=== PATIENT | male | born 1960 | race Caucasian/White ===

== ENCOUNTER 2016-10-05 06:38 | Day surgery (SDC) | payer OTHER ==
[~2016-10-05] VITALS: Ht 177.8 cm; Wt 88.5 kg
[2016-10-05 07:35] LABS: HEMATOCRIT 45.5 % (42.0-54.0); HEMOGLOBIN 15.9 g/dL (13.5-17.5); MCH 33.5 pg (26.0-34.0); MCHC 34.9 g/dL (31.0-37.0); MEAN PLATELET VOLUME 10.2 fL (7.4-10.4); RBC 4.74 10x6/uL (4.20-6.10); RDW 12.2 % (11.5-14.5); WBC 7.2 10x3/uL (4.8-10.8)
[2016-10-05 08:09] LABS: CALC OSMOLALITY 282 mosm/kg (275-300); CALCIUM 8.6 mg/dL (8.5-10.1); CARBON DIOXIDE 25.1 mmol/L (21.0-32.0); CHLORIDE - SERUM 108 mmol/L (98-107); CREATININE - SERUM 0.8 mg/dL (0.6-1.3); GLUCOSE 111 mg/dL (74-106); SODIUM 142 mmol/L (136-145); UREA NITROGEN 9 mg/dL (7-18); eGFR NON AFRICAN AMERICAN > 90 mL/min (90-120)
[2016-10-05] MEDS ORDERED: NEURONTIN 300300 MG PO (08:32)
[2016-10-05] MEDS ORDERED: AMBIEN10 MG PO (08:33)
[2016-10-05] MEDS ORDERED: HYDROCODON-ACE1 EAC7 PO (08:33)
[2016-10-05] MEDS ORDERED: ATIVAN0.5 MG PO (08:33)
[2016-10-05] MEDS ORDERED: PROVENTIL HFA6.7 GM (08:34)
[2016-10-05] MEDS ORDERED: CYMBALTA30 MG PO (08:35)
[2016-10-05] MEDS ORDERED: CIALIS10 MG PO (08:35)
[2016-10-05 08:55] VITALS: BP 149/76; Ht 177.8 cm; Wt 88.5 kg
--- NOTE | 2016-10-05 11:55 | NUR ---
1125 IV DC'ED WITH CATH INTACT & 175ML LTC. PRESSURE TO SITE. PT DRESSED. GIVEN D/C INSTRUCTIONS INCLUDING: MED REC, SHEET LISTING NSAIDS & BLOOD THINNERS TO AVOID, & DISCHARGE INSTRUCTION SHEET POST ENDOSCOPIC PROCEDURES. PT VOICED UNDERSTANDING. TO PRIVATE CAR PER WHEELCHAIR BY VOLUNTEER. HOME [facility] FEMALE VISITOR. Justin QUAN R.N.
--- NOTE | 2016-10-08 09:40 | OP ---
PATIENT NAME: JODY SINGH JR MEDICAL RECORD: [id number] :56 LOCATION:D.OPS ADMISSION DATE: SURGEON: LEOBARDO SANCHEZ MD DATE OF OPERATION: 10/05/2016 PREOPERATIVE DIAGNOSIS: History of colon polyps. POSTOPERATIVE DIAGNOSIS: History of colon polyps with 3 new sessile colon polyps. PROCEDURES: 1. Total colonoscopy to cecum. 2. Hot biopsy forceps polypectomies times 3. SURGEON: Leobardo Sanchez MD DIRECTOR TRANSITION: None. BLOOD LOSS: Minimal. ANESTHESIA: IV sedation. COMPLICATIONS: None. The risks, possible complications and alternatives to procedure were explained to the patient. He elects to proceed. ENDOSCOPIC COURSE: The patient was conveyed to the endoscopy suite electively on 10/05/2016. IV sedation was induced by the anesthesia staff. The patient was placed in the Barragan position. A digital rectal examination was performed. The prostate was slightly enlarged. It was without nodules. It was symmetric. A colonoscope was inserted through the anus. It was easily advanced to the cecum. The prep was excellent. I slowly withdrew the endoscope. I used a combination of direct imaging as well as narrow band imaging to identify the polyps. The polyps were sessile polyps, all between 7 mm and 1.1 cm in dimension. They were removed in their entireties utilizing hot biopsy forceps polypectomy technique. A retroflexed view was obtained in the rectum. I then unretroflexed the scope and removed it under direct vision. I will see the patient in my office in 2-3 weeks. We will discuss the results of the biopsies at that time. I will plan for his next colonoscopy to be in 3 years. TRANSINT:[id number] Voice Confirmation ID: [id number] DOCUMENT ID: [id number] LEOBARDO SANCHEZ MD at 0940 CC: PAMELA VELASQUEZ DO [id number] DICTATION DATE: 10/05/16 1131 AUTOMOTIVE SALESPERSON: 10/05/16 1210 [facility] 10/05/[address] [address]
--- NOTE | 2016-10-08 09:40 | HP ---
PATIENT: JODY SINGH JR MEDICAL RECORD: [id number] ACCOUNT: [id number] LOCATION:[facility] : 56 ADMISSION DATE: 10/05/16 HISTORY AND PHYSICAL EXAMINATION PREOPERATIVE DIAGNOSIS: History of colon polyps. HISTORY OF PRESENT ILLNESS: The patient has diverticulitis frequently. He has diverticulitis almost yearly. He has had some hematochezia recently. His abdomen is nontender. He is not having any abdominal pain. He is here for surveillance colonoscopy. The risks, possible complications and alternatives to procedure were explained to the patient. He elects to proceed. SOCIAL HISTORY: A 56-[id number]-[id number] history. PAST MEDICAL AND SURGICAL HISTORY: COPD and hypertension. He has been a previous difficult intubation. Prior shoulder surgery. REVIEW OF SYSTEMS: Negative for CVA or seizures. Negative for diabetes or thyroid problems. Negative for renal disease or hepatitis. ALLERGIES: No known drug allergies. HOME MEDICINES: Ambien, Ativan, albuterol, Neurontin, and [place]. PHYSICAL EXAMINATION: GENERAL: The patient does not appear acutely ill. He does appear chronically ill. VITAL SIGNS: Reviewed. HEAD: External ears appear normal. EYES: Extraocular movements are intact. NECK: Trachea is midline. CHEST: No intercostal retractions. PULMONARY: Nonlabored. ABDOMEN: Nontender. IMPRESSION: 1. Hematochezia. 2. History of diverticulitis. 3. History of colon polyps. PLAN: Surveillance colonoscopy. TRANSINT:[id number] Voice Confirmation ID: [id number] DOCUMENT ID: [id number] HISTORY AND PHYSICAL [id number] LIBIAJODY GEORGE PENG SEXTON MD at 0940 CC: PAMELA VELASQUEZ DO [id number] DICTATION DATE: 10/05/16 0943 MACHINE FEEDER RAW STOCK: 10/05/16 0957 [facility] 10/05/16 [place] [address]
== END 2016-10-05 11:25 | disposition home or self-care (01) ==
LOC: D.OPS 06:38
PROVIDERS: Anesthesiology
DX: Z12.11 Encounter for screening for malignant neoplasm of colon (principal); K63.5 Polyp of colon; Z86.010 Personal history of colon polyps; N40.0 Benign prostatic hyperplasia without lower urinary tract symptoms; F17.210 Nicotine dependence, cigarettes, uncomplicated; J44.9 Chronic obstructive pulmonary disease, unspecified; I10 Essential (primary) hypertension; Z79.891 Long term (current) use of opiate analgesic; Z79.899 Other long term (current) drug therapy

== ENCOUNTER → 2016-10-25 20:17 | Outpatient (CLI) | payer OTHER ==
[2016-10-05 08:55] VITALS: BMI 28.0
[~2016-10-25 20:17] MED LIST: AMBIEN10 MG PO; ATIVAN0.5 MG PO; CIALIS10 MG PO; CYMBALTA30 MG PO; HYDROCODON-ACE1 EAC7 PO; NEURONTIN 300300 MG PO; PROVENTIL HFA6.7 GM
== END | disposition home or self-care (01) ==
LOC: D.LABREF 20:17
DX: R60.0 Localized edema (principal)

== ENCOUNTER → 2016-10-26 17:24 | Outpatient (CLI) | payer OTHER ==
[2016-10-05 08:55] VITALS: BMI 28.0
== END | disposition home or self-care (01) ==
LOC: D.LABREF 17:24
DX: R60.0 Localized edema (principal)

== ENCOUNTER → 2017-01-19 19:33 | Outpatient (CLI) | payer OTHER ==
[2016-10-05 08:55] VITALS: BMI 28.0
== END | disposition home or self-care (01) ==
LOC: D.LABREF 19:33
DX: K04.7 Periapical abscess without sinus (principal)

== ENCOUNTER 2018-05-31 09:57 | Day surgery (SDC) | payer MEDICARE ==
[~2018-05-31] VITALS: Ht 177.8 cm; Wt 87.5 kg
--- NOTE | ~2018-05-31 | OP ---
PATIENT NAME: JODY SINGH JR MEDICAL RECORD: [id number] :56 LOCATION:D.[facility] ADMISSION DATE: SURGEON: LEOBARDO SANCHEZ MD DATE OF OPERATION: 05/31/2018 PREOPERATIVE DIAGNOSIS: Symptomatic ventral hernia. POSTOPERATIVE DIAGNOSIS: Symptomatic incarcerated ventral hernia. PROCEDURE: Open repair of symptomatic incarcerated ventral hernia. SURGEON: Leobardo Sanchez MD PAPER FEEDER: None. BLOOD LOSS: Minimal. ANESTHESIA: General. COMPLICATIONS: None. The patient elected not to have mesh placed during this repair. He understands there is a higher risk of recurrence if mesh is not used. OPERATIVE COURSE: The patient was conveyed to the operating room electively on 05/31/2018. General anesthesia was induced by the anesthesia staff. An incision was accomplished within the umbilicus. Sharp dissection was carried down to level of some incarcerated preperitoneal fat, which was excised in a piecemeal fashion. I then sharply cleaned overlying connective tissue from around the hernia defect. Some attenuated fascia was sharply excised as well. A btmu-[id number]-[id number] repair was performed with multiple interrupted #0 Surgidac sutures. I then overran this repair with a running #1 Vicryl. I then tacked down the umbilical skin to the underlying repair with a 3-0 Vicryl. The skin was approximated with multiple interrupted 4-0 Vicryl Rapide sutures and then Dermabond and then Steri-Strips. The patient was then extubated and conveyed to the postanesthesia care unit, where he was in stable condition. He will be dismissed home on [place] as well as Colace. I will see him in the office in 2-3 weeks. TRANSINT:[id number] Voice Confirmation ID: [id number] DOCUMENT ID: [id number] LEOBARDO SANCHEZ MD at 1544 CC: [id number] DICTATION DATE: 05/31/181818 DIE CAST ENGINEER: 05/31/181922 [facility] 05/31/18 [id number] [place] [address]
[~2018-05-31 09:57] MED LIST changes: +NORCO 10-325 TA1 TAB PO; +VENTOLIN HFA18 GM INH
[2018-05-31 10:56] LABS: HEMATOCRIT 46.5 % (42.0-54.0); HEMOGLOBIN 16.8 g/dL (13.5-17.5); MCH 35.1 pg (26.0-34.0); MCHC 36.1 g/dL (31.0-37.0); MCV 97.1 fL (80.0-100.0); MEAN PLATELET VOLUME 9.8 fL (7.4-10.4); RBC 4.79 10x6/uL (4.20-6.10); RDW 11.9 % (11.5-14.5); WBC 12.8 10x3/uL (4.8-10.8)
[2018-05-31 11:13] VITALS: Ht 177.8 cm; Wt 87.5 kg
== END 2018-05-31 17:10 | disposition home or self-care (01) ==
LOC: D.OPS 09:57 → D.PAN 12:20 → D.OPS 12:20 → D.PAN 12:30 → D.OPS 13:30
PROVIDERS: Anesthesiology
DX: K43.9 Ventral hernia without obstruction or gangrene (principal); Z72.0 Tobacco use

== ENCOUNTER → 2019-05-25 08:13 | Outpatient (CLI) | payer MEDICARE ==
[2018-05-31 11:13] VITALS: BMI 27.7
--- NOTE | 2019-05-28 09:28 | ST ---
PATIENT:JODY SINGH JR MEDICAL RECORD: [id number] SEX: M LOCATION:[facility] ORDER #: ADMISSION DATE: 05/25/19 AGE OF PATIENT: 59 REFERRING PHYSICIAN: INTERPRETING PHYSICIAN: CHRISTIANA MARIANO MD DATE OF SERVICE: 05/25/2019 PROCEDURE: The patient was exercised on standard Salvatore protocol for 6 minutes achieving 85% max target heart rate response with 33 mCi of sestamibi injected at peak stress, 11 mCi used previously for rest images. FINDINGS: Gated SPECT reveals preserved ejection fraction 83% with decreased thickening and brightening throughout the inferior segments. SPECT IMAGING: Cardiolite was used as myocardial perfusion agent. There is a fixed perfusion defect inferiorly and apically compatible with previous inferoapical myocardial infarction. There is no evidence of reversible ischemia. The remaining segments with homogeneous uptake at rest and stress. OVERALL IMPRESSION: This is a minimally abnormal nuclear stress test, but stable, showing only a previous inferior myocardial infarction. No ongoing ischemic burden and ejection fraction preserved greater than 80%. TRANSINT:[id number] Voice Confirmation ID: [id number] DOCUMENT ID: [id number] CHRISTIANA MARIANO MD at 0928 CC: [id number] DICTATION DATE: 05/26/19 1109 DATA CONVERSION OPERATOR: 05/27/[address] [facility] 05/25/19 [id number] [place] [address]
== END | disposition home or self-care (01) ==
LOC: D.HCCARDIO 08:13
PROVIDERS: ATTEND Internal Medicine Interventional Cardiology
DX: I20.9 Angina pectoris, unspecified (principal)

== ENCOUNTER 2020-10-27 09:50 | Day surgery (SDC) | payer MEDICARE ==
[2020-10-24 12:42] LABS: BASOPHILS 0.6 % (0-2); EOSINOPHILS 0 % (0-7); HEMATOCRIT 42.5 % (42.0-54.0); HEMOGLOBIN 14.8 g/dL (13.5-17.5); IMMATURE GRANULOCYTES 0.1 % (0-5); LYMPHOCYTE ABS# 1.54 10x3/uL (1.32-3.57); LYMPHOCYTES 22.8 % (15-50); MCH 33.8 pg (26.0-34.0); MCHC 34.8 g/dL (31.0-37.0); MEAN PLATELET VOLUME 9.5 fL (7.4-10.4); MONOCYTES 9.5 % (2-11); NEUTROPHIL ABS# 4.51 10x3/uL (1.78-5.38); PLATELET COUNT 217 10x3/uL (130-400); RBC 4.38 10x6/uL (4.20-6.10); RDW 11.7 % (11.5-14.5); WBC 6.7 10x3/uL (4.8-10.8)
[2020-10-24 12:51] LABS: CALC OSMOLALITY 272 mosm/kg (275-300); CALCIUM 9.4 mg/dL (8.5-10.1); CARBON DIOXIDE 28.6 mmol/L (21.0-32.0); CHLORIDE - SERUM 100 mmol/L (98-107); CREATININE - SERUM 0.8 mg/dL (0.6-1.3); GLUCOSE 109 mg/dL (74-106); POTASSIUM - SERUM 4.8 mmol/L (3.5-5.1); SODIUM 136 mmol/L (136-145); UREA NITROGEN 12 mg/dL (7-18); eGFR NON AFRICAN AMERICAN > 90 mL/min (90-120)
[~2020-10-27] VITALS: Ht 177.8 cm; Wt 74.8 kg
[~2020-10-27 09:50] MED LIST changes: +GEMFIBROZIL600 MG PO; +MICARDIS80 MG PO; +NORVASC2.5 MG PO; +PROTONIX40 MG PO
[2020-10-27 10:14] VITALS: BP 127/83; Ht 177.8 cm; Wt 74.8 kg
--- NOTE | 2020-10-27 15:15 | NUR ---
DISCHARGE INSTRUCTIONS REVIEWED WITH PT AND SISTER. COPY OF DC INSTRUCTIONS PROVIDED ALONG WITH ORIGINAL RX'S FOR NORCO AND COLACE. BOTH VOICED UNDERSTANDING. IV DC'D WITH CATH TIP INTACT. PT GETTING DRESSED FOR DC HOME.
--- NOTE | 2020-10-27 15:29 | NUR ---
DISCHARGED HOME VIA W/C, ACCOMPANIED BY JOSIE [facility], TO [facility] WITH SISTER DRIVING. ALL BELONGINGS WITH PT/SISTER.
--- NOTE | 2020-10-28 14:30 | HP ---
PATIENT: JODY SINGH JR MEDICAL RECORD: [id number] ACCOUNT: [id number] LOCATION:[facility] : 56 ADMISSION DATE: 10/27/20 PCP: PAMELA VELASQUEZ DO HISTORY AND PHYSICAL EXAMINATION CHIEF COMPLAINT: Recurrent hernia. HISTORY OF PRESENT ILLNESS: The patient has recurrent ventral hernia at the umbilicus. It is just cephalad to the umbilicus. I am going to plan for a laparoscopic ventral hernia repair with mesh. The risks, possible complications, and alternatives of the procedure were explained to the patient. He elects to proceed. MEDICATIONS: Have been reviewed. ALLERGIES: No known drug allergies. SOCIAL HISTORY: He is a smoker. PAST MEDICAL AND SURGICAL HISTORY: COPD, umbilical hernia repair without mesh, hypertension and gastroesophageal reflux disease. PHYSICAL EXAMINATION: GENERAL: The patient does not appear acutely ill. He does not appear chronically ill. VITAL SIGNS: Reviewed. EARS: External ears appear normal. EYES: Extraocular movements are intact. NECK: Trachea is midline. CHEST: No intercostal retractions. PULMONARY: Nonlabored. No stridor. ABDOMEN: As described above. He does have a prominent diastasis rectus as well as the hernia. IMPRESSION: Recurrent ventral hernia repair. PLAN: Laparoscopic recurrent ventral hernia repair with mesh. TRANSINT:[id number] Voice Confirmation ID: [id number] DOCUMENT ID: [id number] PENG SANCHEZ MD at 1430 CC: PAMELA VELASQUEZ DO [id number] DICTATION DATE: 10/27/20 1130 BENEFITS DIRECTOR: 10/27/20 1218 [facility] 10/27/20 [facility] [address] [id number]
--- NOTE | 2020-10-28 14:30 | OP ---
PATIENT NAME: JODY SINGH JR MEDICAL RECORD: [id number] :56 LOCATION:D.[facility] ADMISSION DATE: SURGEON: PENG SANCHEZ MD DATE OF OPERATION: 10/27/2020 PREOPERATIVE DIAGNOSIS: Recurrent ventral hernia. POSTOPERATIVE DIAGNOSIS: Recurrent non-incarcerated ventral hernia. PROCEDURE: Laparoscopic recurrent non-incarcerated ventral hernia repair with mesh. SURGEON: Peng Sanchez MD LARD MAKER: None. BLOOD LOSS: Minimal. ANESTHESIA: General. COMPLICATIONS: None. The risks, possible complications, and alternatives of procedure were explained to the patient. He elects to proceed. The discussion specifically included, but was not limited to, bleeding requiring an emergency reoperation, infection, intestinal injury. The patient has undergone a prior suture repair of an umbilical hernia by me back in 2018. This hernia defect is just cephalad to the umbilicus. The patient also has a very prominent diastasis rectus. I told him specifically that we would not be fixing the diastasis rectus. DESCRIPTION OF PROCEDURE: The patient was conveyed to the operating room electively on 10/27/2020. General anesthesia was induced by the anesthesia staff. The abdomen was sterilely prepped and draped. A small skin incision was accomplished in the left upper quadrant. A Veress needle was inserted through the skin incision into the peritoneal cavity. CO2 insufflation was begun. Once a sufficient pneumoperitoneum had been achieved, a 12-mm trocar was inserted through this incision. Under direct internal vision utilizing a television camera, a 5-mm trocar was inserted through an incision in the left lower quadrant. Another 5-mm trocar was inserted through an incision in the right lower quadrant and another 5-mm trocar was inserted through an incision in the right upper quadrant. During insertion of the Veress needle and all trocars, there appeared to had been no injury to the bowels, any intraperitoneal or retroperitoneal structures. An abdominal survey was undertaken. I took the laparoscopic Harmonic scalpel and I took down the falciform ligament. I then cleaned the anterior fascia of preperitoneal fat. A prevesicular flap was created with the Harmonic scalpel as well. There was no evidence of a bladder injury during the procedure. I measured the hernia defect. I then brought a 4.[address] mesh with the weendy positioning system on the sterile field. It was hydrated. It was then wrapped tightly around a grasper and advanced into the peritoneal cavity. An incision was accomplished OPERATIVE REPORT [id number] JODY SINGH JR cephalad to the hernia defect. Obliquely, I inserted the Veress needle, so that it came out through the hernia defect. I grasped the tail of the positioning system and then brought it out through the abdominal wall. It was cut. The inflation device was used to inflate the positioning system. The herniorrhaphy was then accomplished with OptiFix tackers circumferentially and then completion of the herniorrhaphy was accomplished with a circumferential application of SorbaFix tacks. The inflation device was removed in its entirety. There was no bleeding even at low pressure of 8. The Jesus Alberto-Landon suture closure device and 0 Vicryl suture was used to close the muscle at the 12-mm trocar site. All trocars were removed and the abdomen desufflated. The skin incisions were closed with interrupted intracuticular 3-0 Vicryls. The small skin incision above the umbilicus was closed with a 4-0 Vicryl Rapide suture. Benzoin and Steri-Strips were applied. The patient was then extubated and conveyed to post-anesthesia care unit where he was in stable condition. TRANSINT:[id number] Voice Confirmation ID: [id number] DOCUMENT ID: [id number] PENG SANCHEZ MD at 1430 CC: [id number] DICTATION DATE: 10/27/20 143 CREDIT CASHIER: 10/27/20 1759 [facility] 10/27/20 [address] [place] [address]
== END 2020-10-27 15:29 | disposition home or self-care (01) ==
LOC: D.OPS 09:50
PROVIDERS: ATTEND Surgery
DX: K43.2 Incisional hernia without obstruction or gangrene (principal); J44.9 Chronic obstructive pulmonary disease, unspecified; I10 Essential (primary) hypertension; K21.9 Gastro-esophageal reflux disease without esophagitis